=== PATIENT | female | born 1955 | race Two or more races ===

== ENCOUNTER 2021-04-19 11:30 | Inpatient (IN) | payer OTHER ==
[~2021-04-19] VITALS: Ht 165.1 cm; Wt 71.7 kg
[2021-04-19] MEDS ORDERED: HYDROCHLOROTH12.5 MG PO (15:12)
[2021-04-30] MEDS ORDERED: ACETAMINOPHEN500 M2 PO (13:01)
== END 2021-04-30 16:30 | disposition home or self-care (01) | DRG 331 ==
LOC: SURG 04-27 05:40 → O/R 04-27 05:40 → SURH 04-27 11:30 → SURG 04-27 13:58 → SURH 04-27 14:45 → SURG 04-30 16:30
PROVIDERS: ADMIT Surgery; ATTEND Surgery
PROC: 0DBP4ZZ Excision of Rectum, Percutaneous Endoscopic Approach (ICD-10-PCS; 2021-04-27)
PROC: 0DBM4ZZ Excision of Descending Colon, Percutaneous Endoscopic Approach (ICD-10-PCS; 2021-04-27)
PROC: 0DTN4ZZ Resection of Sigmoid Colon, Percutaneous Endoscopic Approach (ICD-10-PCS; principal; 2021-04-27 14:45)
DX: K57.20 Diverticulitis of large intestine with perforation and abscess without bleeding (principal); R19.4 Change in bowel habit; Z43.3 Encounter for attention to colostomy; I11.9 Hypertensive heart disease without heart failure